=== PATIENT | female | born 1950 | race Caucasian/White ===

== ENCOUNTER → 2016-09-17 12:31 | Outpatient (CLI) | payer MEDICARE, MEDICAID | END | disposition home or self-care (01) | LOC: D.CT 12:31 | DX: K92.0 Hematemesis (principal) ==

== ENCOUNTER 2016-09-20 07:24 | Outpatient (CLI) | payer MEDICARE, MEDICAID ==
[~2016-09-20] VITALS: Ht 158.8 cm; Wt 77.3 kg
[2016-09-20] MEDS ORDERED: OMEPRAZOLE40 MG PO (07:44)
[2016-09-20] MEDS ORDERED: K-TAB10 MEQ PO (07:44)
[2016-09-20] MEDS ORDERED: TAMOXIFEN CITRA20 MG PO (07:45)
[2016-09-20 07:57] VITALS: BP 148/66; Ht 158.8 cm; Wt 77.3 kg
[2016-09-20 08:26] LABS: BASOPHILS 0.5 % (0-2); EOSINOPHILS 0.8 % (0-7); HEMATOCRIT 33.4 % (36.0-48.0); HEMOGLOBIN 10.3 g/dL (12-16); IMMATURE GRANULOCYTES 0.1 % (0-5); LYMPHOCYTES 23.1 % (15-50); MCH 26.4 pg (26.0-34.0); MCHC 30.8 g/dL (31.0-37.0); MCV 85.6 fL (80.0-100.0); MEAN PLATELET VOLUME 11.3 fL (7.4-10.4); MONOCYTES 7.5 % (2-11); RDW 18.8 % (11.5-14.5); WBC 7.6 10x3/uL (4.8-10.8)
[2016-09-20 08:27] LABS: PLATELET COUNT 121 10x3/uL (130-400)
[2016-09-20 08:32] LABS: APTT 36.6 SECONDS (22.8-39.4); INR 1.66 (0.85-1.17); PROTIME 19.6 SECONDS (11.6-15.0)
[2016-09-20 08:34] LABS: CALC OSMOLALITY 277 mosm/kg (275-300); CALCIUM 8.3 mg/dL (8.5-10.1); CARBON DIOXIDE 23.1 mmol/L (21.0-32.0); CHLORIDE - SERUM 108 mmol/L (98-107); CREATININE - SERUM 0.7 mg/dL (0.6-1.3); GLUCOSE 122 mg/dL (74-106); POTASSIUM - SERUM 3.8 mmol/L (3.5-5.1); SODIUM 140 mmol/L (136-145); UREA NITROGEN 8 mg/dL (7-18); eGFR NON AFRICAN AMERICAN 88 mL/min (90-120)
--- NOTE | 2016-09-20 13:53 | NUR ---
IV DC WITH CATHER TIP INTACT STILL WAITING ON RIDE
--- NOTE | 2016-09-20 14:01 | NUR ---
VS TAKEN AND PLACED ON POST OP SHEET
[2016-09-20 16:46] LABS: LYMPH - BF 83 %; MACROPHAGES BF 14 %; MESOTHELIALS BF 2 %; NEUT - BF 1 %
== END 2016-09-20 14:00 | disposition home or self-care (01) ==
LOC: D.OPS 07:24 → D.CT 10:00 → D.OPS 10:00
PROVIDERS: Family Medicine; General Practice
DX: K74.69 Other cirrhosis of liver (principal); R18.8 Other ascites

== ENCOUNTER → 2016-10-02 08:33 | Outpatient (CLI) | payer MEDICARE, MEDICAID ==
[2016-09-20 07:57] VITALS: BMI 30.6
[~2016-10-02 08:33] MED LIST: K-TAB10 MEQ PO; OMEPRAZOLE40 MG PO; TAMOXIFEN CITRA20 MG PO
[2016-10-02 10:04] LABS: BASOPHILS 0.6 % (0-2); EOSINOPHILS 1.1 % (0-7); HEMATOCRIT 31.6 % (36.0-48.0); IMMATURE GRANULOCYTES 0.2 % (0-5); LYMPHOCYTES 28.1 % (15-50); MCH 26.8 pg (26.0-34.0); MCHC 31.6 g/dL (31.0-37.0); MCV 84.7 fL (80.0-100.0); MEAN PLATELET VOLUME 10.7 fL (7.4-10.4); MONOCYTES 7.5 % (2-11); NEUTROPHILS 62.5 % (40-80); RBC 3.73 10x6/uL (4.00-5.40); RDW 19.7 % (11.5-14.5); WBC 4.7 10x3/uL (4.8-10.8)
[2016-10-02 10:09] LABS: PLATELET COUNT 89 10x3/uL (130-400)
[2016-10-02 10:15] LABS: APTT 35.9 SECONDS (22.8-39.4); INR 1.67 (0.85-1.17); PROTIME 19.6 SECONDS (11.6-15.0)
[2016-10-02 10:16] LABS: % SATURATION 9 % (15-55); IRON 22 ug/dl (35-150); TOTAL IRON BIND CAPACITY 243 ug/dl (260-445); UNSAT IRON BIND CAPACITY 221 ug/dl (150-375)
[2016-10-02 10:31] LABS: ALBUMIN 2.6 g/dL (3.4-5.0); ALKALINE PHOSPHATASE 115 U/L (46-116); ALT (SGPT) 26 U/L (10-68); BILIRUBIN - DIRECT 1.06 mg/dL (0.00-0.30); BILIRUBIN - INDIRECT 1.09 mg/dL (0.00-1.00); BILIRUBIN - TOTAL 2.15 mg/dL (0.2-1.3); CALC OSMOLALITY 277 mosm/kg (275-300); CALCIUM 8.3 mg/dL (8.5-10.1); CARBON DIOXIDE 25.7 mmol/L (21.0-32.0); CHLORIDE - SERUM 107 mmol/L (98-107); CHOL - HDL RATIO 10.3 ratio (2.3-4.1); CHOLESTEROL, TOTAL 134 mg/dL (0-200); CREATININE - SERUM 0.6 mg/dL (0.6-1.3); FERRITIN 23 ng/mL (3-244); GAMMA GT 347 U/L (5-85); GLUCOSE 112 mg/dL (74-106); HDL CHOLESTEROL 13 mg/dL (32-96); LDL CHOLESTEROL 98 mg/dL (0-100); LDL-HDL RATIO 7.5 ratio (1.5-3.5); POTASSIUM - SERUM 3.6 mmol/L (3.5-5.1); PROTEIN - SERUM 5.9 g/dL (6.4-8.2); SODIUM 139 mmol/L (136-145); TRIGLYCERIDE 119 mg/dL (30-200); UREA NITROGEN 9 mg/dL (7-18); eGFR NON AFRICAN AMERICAN > 90 mL/min (90-120)
[2016-10-02 10:52] LABS: PLATELET ESTIMATE DECREASED
[2016-10-03 08:24] LABS: FOLATE (FOLIC ACID) - SERUM 4.7 ng/mL (>3.0)
[2016-10-03 10:20] LABS: ALPHA FETOPROTEIN -(TUMOR MRK) 7.9 ng/mL (0.0-8.3); ANA REFLEX - DIRECT Negative (Negative); HEPATITIS C ANTIBODY <0.1 (0.0-0.9)
[2016-10-03 12:18] LABS: HAPTOGLOBIN 74 mg/dL (34-200)
== END | disposition home or self-care (01) ==
LOC: D.LAB 08:33
PROVIDERS: Internal Medicine Gastroenterology
DX: K76.0 Fatty (change of) liver, not elsewhere classified (principal); R18.8 Other ascites; K74.60 Unspecified cirrhosis of liver

== ENCOUNTER → 2016-10-10 10:00 | Outpatient (CLI) | payer MEDICARE, MEDICAID ==
[2016-09-20 07:57] VITALS: BMI 30.6
[2016-10-10 11:11] LABS: ALBUMIN 2.8 g/dL (3.4-5.0); ALKALINE PHOSPHATASE 125 U/L (46-116); ALT (SGPT) 28 U/L (10-68); CALC OSMOLALITY 280 mosm/kg (275-300); CALCIUM 8.5 mg/dL (8.5-10.1); CARBON DIOXIDE 24.4 mmol/L (21.0-32.0); CHLORIDE - SERUM 106 mmol/L (98-107); CREATININE - SERUM 0.8 mg/dL (0.6-1.3); GLUCOSE 122 mg/dL (74-106); POTASSIUM - SERUM 3.6 mmol/L (3.5-5.1); PROTEIN - SERUM 6.5 g/dL (6.4-8.2); SODIUM 141 mmol/L (136-145); UREA NITROGEN 9 mg/dL (7-18); eGFR NON AFRICAN AMERICAN 76 mL/min (90-120)
== END | disposition home or self-care (01) ==
LOC: D.LAB 10:00
PROVIDERS: Internal Medicine Gastroenterology
DX: K74.60 Unspecified cirrhosis of liver (principal); K92.0 Hematemesis

== ENCOUNTER 2016-11-07 11:37 | Day surgery (SDC) | payer MEDICARE, MEDICAID ==
[~2016-11-07] VITALS: Ht 160 cm; Wt 63.2 kg
--- NOTE | ~2016-11-07 | OP ---
PATIENT NAME: ZAK PEOPLES MEDICAL RECORD: [id number] :48 LOCATION:D.OPS ADMISSION DATE: SURGEON: JULIUS FIGUEROA DO OPERATION DATE: 11/07/16 PROCEDURE: Esophagogastroduodenoscopy with variocele banding times three. INDICATION: Heart burn, nausea and vomiting, screening for varices. SCOPE: Olympus video gastroscope. MEDICATIONS: Propofol 280 milligrams IV per anesthesia. ESTIMATED BLOOD LOSS: Minimal. COMPLICATIONS: None. FINDINGS: Informed consent was given. The patient was made comfortable with the above medication. After reaching an adequate level of sedation by slow IV push, the patient was placed on her left side. The endoscope was then advanced under direct visualization through the mouth to the second portion of the duodenum. In the esophagus there were grade 3 to 4 esophageal varices noted throughout the middle and distal esophagus. There were some bleeding stigmata including white nipple signs. There was no active bleeding. The endoscope was advanced beyond the varices down to the gastroesophageal junction which appeared normal. The scope was advanced beyond the gastroesophageal junction into the stomach and retroflexed to view the cardia where a small sliding hiatal hernia was present. There was diffuse portal hypertensive gastropathy noted throughout all areas in the stomach. There was no active bleeding or ulcerations. The scope was advanced beyond the pylorus into the duodenum where the bulb and second portion of the duodenum appeared normal. The scope was then withdrawn from the patient and fitted with a [employer] Speed Band 7 for variocele banding. It was advanced back down to the gastroesophageal junction and three columns of bands were banded successfully. The scope was then withdrawn from the patient's in its entirety. The patient tolerated the procedure well. There were no complications. IMPRESSIONS: 1. Grade 3-4 esophageal varices banded times 3. 2. Small sliding hiatal hernia. 3. Portal hypertensive gastropathy. PLAN/RECOMMENDATIONS: 1. Discharge home when recovery parameters are met. 2. Change diet to liquid times 48 hours followed by a soft diet times 48 hours then regular. 3. Continue current medications including omeprazole 40 milligrams daily. 4. Repeat esophagogastroduodenoscopy in approximately 4 weeks for repeat banding until eradication of varices. 5. Follow up in gastroenterology clinic as needed and maintain regular scheduled appointments for follow up of liver enzymes and HCC screening. OPERATIVE REPORT [id number] ZAK PEOPLES NATHAN A DO CC: [id number] DICTATION DATE: 11/07/16 1500 TRIMMING ASSEMBLER: DM 11/08/16 0840 [facility] [place] 11/07/16 [id number] [place] [address]
[2016-11-07 13:50] LABS: BASOPHILS 0.6 % (0-2); EOSINOPHILS 0.9 % (0-7); HEMATOCRIT 28.4 % (36.0-48.0); LYMPHOCYTES 28.5 % (15-50); MCH 26.2 pg (26.0-34.0); MCHC 31.7 g/dL (31.0-37.0); MCV 82.6 fL (80.0-100.0); MEAN PLATELET VOLUME 9.3 fL (7.4-10.4); MONOCYTES 6.7 % (2-11); NEUTROPHILS 63.3 % (40-80); PLATELET COUNT 84 10x3/uL (130-400); RBC 3.44 10x6/uL (4.00-5.40); RDW 19.3 % (11.5-14.5); WBC 3.4 10x3/uL (4.8-10.8)
[2016-11-07 14:00] LABS: CALC OSMOLALITY 284 mosm/kg (275-300); CALCIUM 8.5 mg/dL (8.5-10.1); CARBON DIOXIDE 23.5 mmol/L (21.0-32.0); CHLORIDE - SERUM 108 mmol/L (98-107); CREATININE - SERUM 0.8 mg/dL (0.6-1.3); GLUCOSE 117 mg/dL (74-106); SODIUM 143 mmol/L (136-145); UREA NITROGEN 10 mg/dL (7-18); eGFR NON AFRICAN AMERICAN 76 mL/min (90-120)
[2016-11-07] MEDS ORDERED: ALDACTONE100 MG PO (14:01)
[2016-11-07] MEDS ORDERED: FUROSEMIDE40 MG PO (14:01)
[2016-11-07 14:21] VITALS: BP 123/57; Ht 160 cm; Wt 63.2 kg
[2016-11-07 15:00] LABS: PLATELET ESTIMATE DECREASED
== END 2016-11-07 16:59 | disposition home or self-care (01) ==
LOC: D.OPS 11:37
PROVIDERS: Anesthesiology
DX: K74.60 Unspecified cirrhosis of liver (principal); I85.10 Secondary esophageal varices without bleeding; K21.9 Gastro-esophageal reflux disease without esophagitis; K44.9 Diaphragmatic hernia without obstruction or gangrene; K76.6 Portal hypertension; K31.89 Other diseases of stomach and duodenum; Z01.812 Encounter for preprocedural laboratory examination

== ENCOUNTER 2016-11-15 11:15 | Day surgery (SDC) | payer MEDICARE, MEDICAID ==
[~2016-11-15] VITALS: Ht 160 cm; Wt 59.5 kg
--- NOTE | ~2016-11-15 | OP ---
PATIENT NAME: ZAK PEOPLES MEDICAL RECORD: [id number] :48 LOCATION:CARL ADMISSION DATE: SURGEON: JULIUS FIGUEROA DO OPERATION DATE: 11/15/16 PROCEDURE: Colonoscopy with polypectomy. INDICATIONS FOR PROCEDURE: Screening colonoscopy. SCOPE: Olympus video pediatric colonoscope. MEDICATIONS: Propofol 350 milligrams IV per anesthesia. WITHDRAWAL TIME: 20 minutes. ESTIMATED BLOOD LOSS: Minimal. COMPLICATIONS: None. FINDINGS: Informed consent was given. The patient was made comfortable with the above medication. After reaching an adequate level of sedation by slow IV push, the patient was placed on her left side. A digital rectal examination was performed and was normal. The endoscope was then advanced under direct visualization through the rectum to the cecum with visualization of the appendiceal orifice and ileocecal valve. The scope was slowly withdrawn, and the mucosa was carefully examined. The prep was excellent. There was evidence of mild diverticulosis involving the descending and sigmoid colon. There were five separate polyps visualized and removed on this examination. The first was located in the ascending colon. It measured approximately 1 centimeter in size and was sessile. It was removed using a hot snare in one piece and completely retrieved. There were two polyps located in the transverse colon. Both were benign appearing and sessile and measuring approximately 5-8 millimeters in diameter. They were both removed with a hot snare in one piece and completely retrieved. Two polyps were located in the descending colon. One was a benign appearing sessile polyp measuring approximately 4 millimeters in diameter. It was removed with a hot snare in one piece and completely retrieved. The second polyp was a larger semipedunculated polyp measuring approximately 1.3 centimeters in size. It was removed using a hot snare in one piece and completely retrieved. Retroflexion was performed in the rectum with small nonbleeding internal hemorrhoids visualized. The scope was withdrawn from the patient. The patient tolerated the procedure well and there were no complications. IMPRESSIONS: 1. Five polyps as described above all removed with hot snare. 2. Mild diverticulosis of the descending and sigmoid colon. 3. Small, nonbleeding internal hemorrhoids. PLAN/RECOMMENDATIONS: 1. Discharge home when recovery parameters are met. 2. High fiber diet. 3. Continue current medications. 4. Await biopsy results for final recommendations on when to repeat colonoscopy. At this time I anticipate a recall in one year pending the pathology report. OPERATIVE REPORT [id number] ZAK PEOPLES NATHAN A DO CC: [id number] DICTATION DATE: 11/16/16 1500 [employer]EST PRODUCTS GATHERER: DM 11/16/16 1356 [facility] 11/15/16 [id number] [place] [address]
[~2016-11-15 11:15] MED LIST changes: +ALDACTONE100 MG PO; +FUROSEMIDE40 MG PO
[2016-11-15 13:03] VITALS: BP 135/65; Ht 160 cm; Wt 59.5 kg
--- NOTE | 2016-11-15 15:56 | NUR ---
1550 DISCHARGE INSTRUCTIONS COMPLETE. NO PRESCRIPTIONS GIVEN. ESCORTED OUT BY VOLUNTEER.
== END 2016-11-15 15:50 | disposition home or self-care (01) ==
LOC: D.OPS 11:15
DX: Z12.11 Encounter for screening for malignant neoplasm of colon (principal); K57.30 Diverticulosis of large intestine without perforation or abscess without bleeding; D12.2 Benign neoplasm of ascending colon; K64.8 Other hemorrhoids; Z79.899 Other long term (current) drug therapy

== ENCOUNTER 2016-12-10 11:53 | Day surgery (SDC) | payer MEDICARE, MEDICAID ==
[~2016-12-10] VITALS: Ht 160 cm; Wt 59.1 kg
[2016-12-10 13:03] LABS: BASOPHILS 0.6 % (0-2); EOSINOPHILS 1.2 % (0-7); HEMATOCRIT 28.5 % (36.0-48.0); HEMOGLOBIN 9.1 g/dL (12-16); LYMPHOCYTES 24.2 % (15-50); MCH 26.4 pg (26.0-34.0); MCHC 31.9 g/dL (31.0-37.0); MCV 82.6 fL (80.0-100.0); MEAN PLATELET VOLUME 9.1 fL (7.4-10.4); MONOCYTES 7.6 % (2-11); NEUTROPHILS 66.4 % (40-80); PLATELET COUNT 76 10x3/uL (130-400); RBC 3.45 10x6/uL (4.00-5.40); RDW 17.6 % (11.5-14.5); WBC 3.3 10x3/uL (4.8-10.8)
[2016-12-10 13:21] LABS: INR 1.66 (0.85-1.17); PROTIME 19.5 SECONDS (11.6-15.0)
[2016-12-10 13:22] LABS: APTT 38.2 SECONDS (22.8-39.4)
[2016-12-10 13:24] LABS: ALBUMIN 3.2 g/dL (3.4-5.0); ALKALINE PHOSPHATASE 98 U/L (46-116); ALT (SGPT) 21 U/L (10-68); BILIRUBIN - TOTAL 1.63 mg/dL (0.2-1.3); CALC OSMOLALITY 277 mosm/kg (275-300); CALCIUM 8.5 mg/dL (8.5-10.1); CARBON DIOXIDE 25.7 mmol/L (21.0-32.0); CHLORIDE - SERUM 105 mmol/L (98-107); CREATININE - SERUM 0.8 mg/dL (0.6-1.3); GLUCOSE 109 mg/dL (74-106); POTASSIUM - SERUM 4.6 mmol/L (3.5-5.1); PROTEIN - SERUM 6.4 g/dL (6.4-8.2); SODIUM 138 mmol/L (136-145); UREA NITROGEN 15 mg/dL (7-18); eGFR NON AFRICAN AMERICAN 76 mL/min (90-120)
[2016-12-10 13:40] VITALS: BP 125/58; Ht 160 cm; Wt 59.1 kg
--- NOTE | 2016-12-10 14:16 | NUR ---
1414-BANDS TIMES THREE APPLIED TO ESOPHAGEAL VARICES.
--- NOTE | 2016-12-11 16:20 | OP ---
PATIENT NAME: ZAK PEOPLES MEDICAL RECORD: [id number] :48 LOCATION:CARL ADMISSION DATE: SURGEON: JULIUS FIGUEROA DO DATE OF OPERATION: 12/10/2016 PROCEDURE: EGD with banding. INDICATIONS FOR PROCEDURE: Surveillance of esophageal varices, last checked and banded on 11/07/2016. SCOPE: Olympus video gastroscope. MEDICATIONS: Propofol 300 mg IV per anesthesia. ESTIMATED BLOOD LOSS: Minimal. COMPLICATIONS: None. FINDINGS: Informed consent was given. The patient was made comfortable with the above medication. After reaching an adequate level of sedation by slow IV push, the patient was placed on her left side. The endoscope was then advanced under direct visualization through the mouth to the second portion of the duodenum. The upper and middle portions of the esophagus appeared normal. In the lower third of the esophagus down to the GE junction, there were segmented varices that were grade III. The endoscope was advanced beyond this site to the GE junction where mild LA class A reflux esophagitis was visualized. Scope was advanced beyond this into the stomach and retroflexed to view the cardia where a small sliding hiatal hernia was visible. Throughout the entire stomach, there was evidence of congestion and edema consistent with portal hypertensive gastropathy. The endoscope was advanced beyond the pylorus into the duodenum where the bulb and second portion of the duodenum were normal. The scope was then removed from the patient and fitted with a Speedband 7 from [employer]. The scope was advanced back through the mouth under direct visualization to the GE junction and slowly pulled back to the specified varices, which required banding. Three bands were placed today in total successfully. The scope was then withdrawn from the patient. The patient tolerated the procedure well and there were no complications. IMPRESSION: 1. Esophageal varices grade III banded times 3. 2. LA class A reflux-induced esophagitis. 3. Small sliding hiatal hernia. 4. Portal hypertensive gastropathy. PLAN AND RECOMMENDATIONS: 1. Discharge home when recovery parameters are met. 2. Continue current medications. 3. Dietary changes consisting of liquid diet times 48 hours followed by soft diet times 48 hours, then a regular diet to follow. 4. Repeat EGD with banding as indicated in approximately 4 weeks' time until eradication. TRANSINT:[id number] Voice Confirmation ID: [id number] DOCUMENT ID: [id number] OPERATIVE REPORT [id number] ZAK PEOPLES,JULIUS Alva DO at 1620 CC: [id number] DICTATION DATE: 12/10/161424 OBSERVER GRAVITY PROSPECTING: 12/10/162050 [facility] [place] 12/10/16 [id number] [place] [id number]
== END 2016-12-10 15:35 | disposition home or self-care (01) ==
LOC: D.OPS 11:53
PROVIDERS: Anesthesiology; Internal Medicine Gastroenterology
DX: I85.00 Esophageal varices without bleeding (principal); K21.0 Gastro-esophageal reflux disease with esophagitis; K44.9 Diaphragmatic hernia without obstruction or gangrene; K76.6 Portal hypertension; K31.89 Other diseases of stomach and duodenum; Z01.812 Encounter for preprocedural laboratory examination

== ENCOUNTER → 2017-01-02 08:40 | Outpatient (CLI) | payer MEDICARE, MEDICAID ==
[2016-12-10 13:40] VITALS: BMI 23.0
[2017-01-02 09:14] LABS: ALBUMIN 3.1 g/dL (3.4-5.0); ALKALINE PHOSPHATASE 96 U/L (46-116); ALT (SGPT) 20 U/L (10-68); BILIRUBIN - DIRECT 0.39 mg/dL (0.00-0.30); BILIRUBIN - INDIRECT 0.61 mg/dL (0.00-1.00); CALC OSMOLALITY 286 mosm/kg (275-300); CALCIUM 8.6 mg/dL (8.5-10.1); CARBON DIOXIDE 24.3 mmol/L (21.0-32.0); CHLORIDE - SERUM 110 mmol/L (98-107); CREATININE - SERUM 0.7 mg/dL (0.6-1.3); GLUCOSE 111 mg/dL (74-106); POTASSIUM - SERUM 3.7 mmol/L (3.5-5.1); PROTEIN - SERUM 6.1 g/dL (6.4-8.2); SODIUM 144 mmol/L (136-145); UREA NITROGEN 11 mg/dL (7-18); eGFR NON AFRICAN AMERICAN 88 mL/min (90-120)
[2017-01-02 09:44] LABS: BASOPHILS 0.6 % (0-2); EOSINOPHILS 2.5 % (0-7); IMMATURE GRANULOCYTES 0.2 % (0-5); INR 1.46 (0.85-1.17); LYMPHOCYTES 30.8 % (15-50); MCH 25.9 pg (26.0-34.0); MCV 83.3 fL (80.0-100.0); MEAN PLATELET VOLUME 10.1 fL (7.4-10.4); MONOCYTES 5.6 % (2-11); NEUTROPHILS 60.3 % (40-80); PLATELET COUNT 87 10x3/uL (130-400); PROTIME 17.6 SECONDS (11.6-15.0); RBC 3.48 10x6/uL (4.00-5.40); RDW 16.8 % (11.5-14.5); WBC 4.8 10x3/uL (4.8-10.8)
== END | disposition home or self-care (01) ==
LOC: D.LAB 08:00
PROVIDERS: Internal Medicine Gastroenterology
DX: R18.8 Other ascites (principal); K74.60 Unspecified cirrhosis of liver

== ENCOUNTER 2017-01-09 11:14 | Day surgery (SDC) | payer MEDICARE, MEDICAID ==
[~2017-01-09] VITALS: Ht 160 cm; Wt 60.0 kg
[2017-01-09 12:03] VITALS: BP 116/63; Ht 160 cm; Wt 60.0 kg
[2017-01-09 12:39] LABS: HEMATOCRIT 32.4 % (36.0-48.0); HEMOGLOBIN 10.2 g/dL (12-16); MCHC 31.5 g/dL (31.0-37.0); MCV 82.4 fL (80.0-100.0); MEAN PLATELET VOLUME 9.8 fL (7.4-10.4); RBC 3.93 10x6/uL (4.00-5.40); RDW 16.2 % (11.5-14.5); WBC 5.3 10x3/uL (4.8-10.8)
[2017-01-09 12:50] LABS: APTT 34.3 SECONDS (22.8-39.4); INR 1.45 (0.85-1.17); PROTIME 17.6 SECONDS (11.6-15.0)
[2017-01-09 13:02] LABS: ALBUMIN 3.2 g/dL (3.4-5.0); ALKALINE PHOSPHATASE 105 U/L (46-116); ALT (SGPT) 23 U/L (10-68); BILIRUBIN - TOTAL 1.39 mg/dL (0.2-1.3); CALC OSMOLALITY 278 mosm/kg (275-300); CALCIUM 8.4 mg/dL (8.5-10.1); CARBON DIOXIDE 23.8 mmol/L (21.0-32.0); CHLORIDE - SERUM 106 mmol/L (98-107); CREATININE - SERUM 0.7 mg/dL (0.6-1.3); GLUCOSE 112 mg/dL (74-106); POTASSIUM - SERUM 3.8 mmol/L (3.5-5.1); PROTEIN - SERUM 6.3 g/dL (6.4-8.2); SODIUM 140 mmol/L (136-145); UREA NITROGEN 11 mg/dL (7-18); eGFR NON AFRICAN AMERICAN 88 mL/min (90-120)
--- NOTE | 2017-01-09 15:23 | NUR ---
1520 DISCHARGE INSTRUCTIONS COMPLETE. PT HAS NO QUESTIONS OR CONCERNS AT THIS TIME. TRANSPORTATION WILL NOT BE HERE UNTIL 1600. WILL ESCORT OUT WHEN RIDE GETS HERE.
--- NOTE | 2017-01-14 12:43 | OP ---
PATIENT NAME: ZAK PEOPLES MEDICAL RECORD: [id number] :48 LOCATION:D.OPS ADMISSION DATE: SURGEON: JULIUS FIGUEROA DO DATE OF OPERATION: 01/09/2017 PROCEDURE: EGD. INDICATIONS FOR PROCEDURE: Surveillance of esophageal varices. SCOPE: Olympus video gastroscope. MEDICATIONS: Propofol 150 mg IV per anesthesia. ESTIMATED BLOOD LOSS: None. COMPLICATIONS: None. FINDINGS: Informed consent was given. The patient was made comfortable with the above medication. After reaching an adequate level of sedation by slow IV push, the patient was placed on her left side. The endoscope was then advanced under direct visualization through the mouth to the second portion of the duodenum. In the esophagus, there was evidence of grade II to grade III esophageal varices without bleeding stigmata located in the middle and distal esophagus. There were multiple scars from previous banding sites. At the GE junction, there was evidence of LA class A reflux-induced esophagitis. The endoscope was advanced beyond the GE junction into the stomach where a medium sized sliding hiatal hernia was present. The endoscope is retroflexed to view the cardia and fundus. There were no gastric varices visualized. You could appreciate the hiatal hernia from this view. There was evidence of portal hypertensive gastropathy throughout the entire stomach with an erythematous and congested pattern. The endoscope was advanced beyond the pylorus into the duodenum where the bulb and second portion of the duodenum appeared normal. The scope was then withdrawn from the patient. The patient tolerated the procedure well and there were no complications. IMPRESSION: 1. Grade II to grade III esophageal varices without bleeding stigmata. No bands were placed on this examination. 2. LA class A reflux-induced esophagitis. 3. Portal hypertensive gastropathy. 4. Medium size sliding hiatal hernia involving the cardia. PLAN AND RECOMMENDATIONS: 1. Discharge home when recovery parameters are met. 2. Continue low sodium diet. 3. Continue current medications. 4. Continue q.6 months office visits and screening for hepatocellular carcinoma with right upper quadrant ultrasounds, as well as labs. 5. Recall upper endoscopy in 6 months for surveillance of esophageal varices. TRANSINT:[id number] Voice Confirmation ID: [id number] DOCUMENT ID: [id number] OPERATIVE REPORT [id number] ZAK PEOPLES JULIUS FIGUEROA DO at 1243 CC: [id number] DICTATION DATE: 01/09/17 1433 FILLER AND TRIMMER: 01/09/172053 [facility] 01/09/17 [id number] [place] [address]
== END 2017-01-09 16:45 | disposition home or self-care (01) ==
LOC: D.OPS 11:14
PROVIDERS: Anesthesiology
DX: I85.00 Esophageal varices without bleeding (principal); K74.60 Unspecified cirrhosis of liver; K76.6 Portal hypertension; K31.89 Other diseases of stomach and duodenum; K44.9 Diaphragmatic hernia without obstruction or gangrene; K21.0 Gastro-esophageal reflux disease with esophagitis; Z01.812 Encounter for preprocedural laboratory examination

== ENCOUNTER → 2017-02-27 08:26 | Outpatient (CLI) | payer MEDICARE, MEDICAID ==
[2017-01-09 12:03] VITALS: BMI 23.4
[2017-02-27 09:26] LABS: BASOPHILS 0.6 % (0-2); EOSINOPHILS 2.3 % (0-7); HEMATOCRIT 29.5 % (36.0-48.0); HEMOGLOBIN 9.2 g/dL (12-16); IMMATURE GRANULOCYTES 0.3 % (0-5); MCH 25.3 pg (26.0-34.0); MCHC 31.2 g/dL (31.0-37.0); MEAN PLATELET VOLUME 9.9 fL (7.4-10.4); MONOCYTES 6.7 % (2-11); NEUTROPHILS 60.1 % (40-80); PLATELET COUNT 78 10x3/uL (130-400); RBC 3.64 10x6/uL (4.00-5.40); RDW 17.6 % (11.5-14.5); WBC 3.4 10x3/uL (4.8-10.8)
[2017-02-27 09:54] LABS: ALBUMIN 3.1 g/dL (3.4-5.0); ALKALINE PHOSPHATASE 110 U/L (46-116); ALT (SGPT) 20 U/L (10-68); BILIRUBIN - DIRECT 0.44 mg/dL (0.00-0.30); BILIRUBIN - INDIRECT 0.74 mg/dL (0.00-1.00); BILIRUBIN - TOTAL 1.18 mg/dL (0.2-1.3); CALC OSMOLALITY 284 mosm/kg (275-300); CALCIUM 8.3 mg/dL (8.5-10.1); CARBON DIOXIDE 25.5 mmol/L (21.0-32.0); CHLORIDE - SERUM 108 mmol/L (98-107); CREATININE - SERUM 0.7 mg/dL (0.6-1.3); GLUCOSE 102 mg/dL (74-106); POTASSIUM - SERUM 3.8 mmol/L (3.5-5.1); PROTEIN - SERUM 6.4 g/dL (6.4-8.2); SODIUM 143 mmol/L (136-145); UREA NITROGEN 13 mg/dL (7-18); eGFR NON AFRICAN AMERICAN 88 mL/min (90-120)
[2017-02-27 10:27] LABS: INR 1.47 (0.85-1.17); PROTIME 17.7 SECONDS (11.6-15.0)
== END | disposition home or self-care (01) ==
LOC: D.US 08:26
PROVIDERS: Internal Medicine Gastroenterology
DX: K74.60 Unspecified cirrhosis of liver (principal)

== ENCOUNTER → 2017-08-27 08:53 | Outpatient (CLI) | payer MEDICARE ==
[2017-01-09 12:03] VITALS: BMI 23.4
[2017-08-27 09:56] LABS: EOSINOPHILS 2.2 % (0-7); HEMATOCRIT 33.1 % (36.0-48.0); HEMOGLOBIN 10.3 g/dL (12-16); IMMATURE GRANULOCYTES 0.2 % (0-5); LYMPHOCYTES 30.6 % (15-50); MCH 24.4 pg (26.0-34.0); MCHC 31.1 g/dL (31.0-37.0); MCV 78.4 fL (80.0-100.0); MEAN PLATELET VOLUME 9.5 fL (7.4-10.4); MONOCYTES 11.9 % (2-11); NEUTROPHILS 54.1 % (40-80); PLATELET COUNT 71 10x3/uL (130-400); RBC 4.22 10x6/uL (4.00-5.40); RDW 18.1 % (11.5-14.5)
[2017-08-27 10:05] LABS: INR 1.24 (0.85-1.17); PROTIME 15.1 SECONDS (11.6-15.0)
[2017-08-27 10:11] LABS: ALBUMIN 3.5 g/dL (3.4-5.0); ANION GAP 15.5 mmol/L (8-16); BILIRUBIN - DIRECT 0.4 mg/dL (0.00-0.30); BILIRUBIN - INDIRECT 0.92 mg/dL (0.00-1.00); BILIRUBIN - TOTAL 1.32 mg/dL (0.2-1.3); CALCIUM 8.9 mg/dL (8.5-10.1); CARBON DIOXIDE 24.7 mmol/L (21.0-32.0); CREATININE - SERUM 0.9 mg/dL (0.6-1.3); POTASSIUM - SERUM 4.2 mmol/L (3.5-5.1); PROTEIN - SERUM 6.9 g/dL (6.4-8.2)
== END | disposition home or self-care (01) ==
LOC: D.US 08:53
PROVIDERS: Internal Medicine Gastroenterology
DX: K74.60 Unspecified cirrhosis of liver (principal)

== ENCOUNTER → 2017-10-03 08:24 | Outpatient (CLI) | payer MEDICARE ==
[2017-01-09 12:03] VITALS: BMI 23.4
[2017-10-04 08:18] LABS: ALPHA FETOPROTEIN -(TUMOR MRK) 8.6 ng/mL (0.0-8.3); CA 15-3 27.8 U/mL (0.0-25.0); CEA 4.9 ng/mL (0.0-4.7)
== END | disposition home or self-care (01) ==
LOC: D.LAB 08:24 → D.CT 09:00
PROVIDERS: Surgery
DX: C50.919 Malignant neoplasm of unspecified site of unspecified female breast (principal); K74.60 Unspecified cirrhosis of liver; K80.20 Calculus of gallbladder without cholecystitis without obstruction; I85.10 Secondary esophageal varices without bleeding; K44.9 Diaphragmatic hernia without obstruction or gangrene

== ENCOUNTER 2019-10-05 11:21 | Day surgery (SDC) | payer MEDICARE ==
[~2019-10-05] VITALS: Ht 160 cm; Wt 74.1 kg
[2019-10-05 11:49] LABS: BASOPHILS 0.3 % (0-2); HEMATOCRIT 41.5 % (36.0-48.0); IMMATURE GRANULOCYTES 0.2 % (0-5); LYMPHOCYTES 20.6 % (15-50); MCH 29.8 pg (26.0-34.0); MCHC 33.7 g/dL (31.0-37.0); MCV 88.3 fL (80.0-100.0); MEAN PLATELET VOLUME 10.4 fL (7.4-10.4); MONOCYTES 8.2 % (2-11); NEUTROPHILS 68.7 % (40-80); PLATELET COUNT 73 10x3/uL (130-400); RDW 13.7 % (11.5-14.5); WBC 6.1 10x3/uL (4.8-10.8)
[2019-10-05] MEDS ORDERED: SYNTHROID25 MCG PO (12:12)
[2019-10-05] MEDS ORDERED: COREG6.25 MG PO (12:12)
[2019-10-05 12:16] VITALS: BP 138/68; Ht 160 cm; Wt 74.1 kg
[2019-10-05 13:18] LABS: PLATELET ESTIMATE DECREASED; ROULEAUX OCC
--- NOTE | 2019-10-05 14:42 | NUR ---
PATIENT AMBULATING AROUND ROOM WITHOUT DIZZINESS OR UNSTEADINESS, PATIENT VOIDS IN TOILET WITHOUT DIFFICULTY. PIV DC'D WITH TIP INTACT. DISCHARGE INSTRUCTIONS REVIEWED WITH PATIENT AND FRIEND [id number] DISCHARGED HOME VIA WHEELCHAIR TO PRIVATE VEHICLE WITH FRIEND
--- NOTE | 2019-10-06 07:12 | OP ---
PATIENT NAME: ZAK PEOPLES MEDICAL RECORD: [id number] :48 LOCATION:D.OPS ADMISSION DATE: SURGEON: JULIUS FIGUEROA DO DATE OF OPERATION: 10/05/2019 PROCEDURE: Colonoscopy with polypectomy and biopsies. INDICATIONS FOR PROCEDURE: History of colon polyps and history of anemia. SCOPE: Olympus video pediatric colonoscope. MEDICATIONS: Propofol 300 mg IV per anesthesia. WITHDRAWAL TIME: 10 minutes. ESTIMATED BLOOD LOSS: Minimal. COMPLICATIONS: None. FINDINGS: Informed consent was given. The patient was made comfortable with the above medication. After reaching an adequate level of sedation by slow IV push, the patient was placed on her left side. A digital rectal examination was performed and was normal. The endoscope was then advanced under direct visualization through the rectum to the cecum, confirmed by the presence of the appendiceal orifice and ileocecal valve. The endoscope was slowly withdrawn and mucosa was carefully examined. The prep quality was good. There were 2 polyps visualized on today's examination. The first was located in the rectum. It was benign appearing and sessile and measured approximately 3-4 mm in diameter. It was removed using hot forceps. There was another benign appearing sessile polyp located in the descending colon which measured approximately 3-4 mm in diameter. It was removed using hot forceps. In the ascending colon, there was a lipoma. This was biopsied with cold forceps to confirm its benign nature and lack of adenomatous tissue. There was evidence of mild diverticulosis involving the sigmoid colon. Retroflexion was performed in the rectum with visualization of grade I internal hemorrhoids without bleeding. The endoscope was withdrawn from the patient. The patient tolerated the procedure well and there were no complications. IMPRESSION: 1. Two benign-appearing sessile polyps as described above, removed using hot forceps. 2. Mild diverticulosis of the sigmoid colon. 3. A benign-appearing lipoma in the ascending colon, which was biopsied. 4. Grade I internal hemorrhoids without bleeding. PLAN AND RECOMMENDATIONS: 1. Discharge home when recovery parameters are met. 2. Follow up biopsy specimen results. 3. High fiber diet. 4. Continue current medications. 5. Recall colonoscopy in 5 years for personal history of polyps. TRANSINT:[id number] Voice Confirmation ID: [id number] DOCUMENT ID: [id number] OPERATIVE REPORT [id number] SHELTON,ZAK JULIUS MEZA DO at 0712 CC: [id number] DICTATION DATE: 10/05/19 1354 PLASTERER JOURNEYMAN: 10/06/19 0018 [facility] 10/05/19 [id number] [place] [id number]
== END 2019-10-05 14:50 | disposition home or self-care (01) ==
LOC: D.OPS 11:21
PROVIDERS: Anesthesiology; ATTEND Internal Medicine Gastroenterology
DX: Z86.010 Personal history of colon polyps (principal); K63.5 Polyp of colon; D17.5 Benign lipomatous neoplasm of intra-abdominal organs; K74.60 Unspecified cirrhosis of liver; I85.00 Esophageal varices without bleeding; R18.8 Other ascites; D64.9 Anemia, unspecified

== ENCOUNTER → 2019-10-06 19:00 | Outpatient (CLI) | payer MEDICARE ==
[2019-10-05 12:16] VITALS: BMI 28.9
[~2019-10-06 19:00] MED LIST changes: +COREG6.25 MG PO; +SYNTHROID25 MCG PO
== END | disposition home or self-care (01) ==
LOC: D.MAMMO 15:00
PROVIDERS: ATTEND Internal Medicine Hematology & Oncology
DX: Z85.3 Personal history of malignant neoplasm of breast (principal); R97.8 Other abnormal tumor markers; E03.9 Hypothyroidism, unspecified; R73.9 Hyperglycemia, unspecified; K74.69 Other cirrhosis of liver; D64.9 Anemia, unspecified

== ENCOUNTER 2019-10-26 07:26 | Outpatient (CLI) | payer MEDICARE ==
[~2019-10-26] VITALS: Ht 160 cm; Wt 72.7 kg
[2019-10-26 07:42] LABS: BASOPHILS 0.2 % (0-2); EOSINOPHILS 2.6 % (0-7); HEMATOCRIT 40.4 % (36.0-48.0); HEMOGLOBIN 13.7 g/dL (12-16); IMMATURE GRANULOCYTES 0.4 % (0-5); LYMPHOCYTES 19.5 % (15-50); MCH 29.8 pg (26.0-34.0); MCHC 33.9 g/dL (31.0-37.0); MCV 87.8 fL (80.0-100.0); MEAN PLATELET VOLUME 10.6 fL (7.4-10.4); MONOCYTES 7.1 % (2-11); NEUTROPHILS 70.2 % (40-80); PLATELET COUNT 69 10x3/uL (130-400); WBC 5.1 10x3/uL (4.8-10.8)
[2019-10-26 07:52] LABS: INR 1.14 (0.85-1.17); PROTIME 14.6 SECONDS (11.6-15.0)
[2019-10-26 07:53] LABS: APTT 32.7 SECONDS (22.8-39.4); CALC OSMOLALITY 279 mosm/kg (275-300); CALCIUM 9.2 mg/dL (8.5-10.1); CHLORIDE - SERUM 104 mmol/L (98-107); CREATININE - SERUM 0.8 mg/dL (0.6-1.3); GLUCOSE 145 mg/dL (74-106); POTASSIUM - SERUM 4.2 mmol/L (3.5-5.1); SODIUM 139 mmol/L (136-145); UREA NITROGEN 11 mg/dL (7-18); eGFR NON AFRICAN AMERICAN 75 mL/min (90-120)
[2019-10-26 09:00] VITALS: BP 134/53; Ht 160 cm; Wt 72.7 kg
== END 2019-10-26 13:03 | disposition home or self-care (01) ==
LOC: D.SP 07:26 → D.CT 10:00 → D.SP 13:03
PROVIDERS: General Practice; ATTEND Internal Medicine Hematology & Oncology
DX: D69.6 Thrombocytopenia, unspecified (principal); E03.9 Hypothyroidism, unspecified; R97.8 Other abnormal tumor markers; K74.69 Other cirrhosis of liver; Z85.3 Personal history of malignant neoplasm of breast